=== PATIENT | female | born 1950 | race Caucasian/White ===

== ENCOUNTER → 2018-03-14 | Outpatient (CLI) | payer OTHER, BC ==
--- NOTE | 2018-03-14 13:37 | MAMMOGRAPHY REPORT ---
BILATERAL DIGITAL SCREENING MAMMOGRAM TOMOSYNTHESIS WITH CAD: 03/14/2018 CLINICAL HISTORY: Routine screening. Patient has no complaints. TECHNIQUE: The study was acquired using full field digital technology and interpreted from soft copy. Breast tomosynthesis in addition to standard 2D mammography was performed. Current study was also ev aluated with a Computer Aided Detection (CAD) system. COMPARISON: Comparison is made to exams dated: 05/05/2015 mammogram, 04/12/2011 mammogram, 03/25/2010 ma mmogram - [facility], 06/24/2008, and 08/07/2004 mammogram - [facility]ter. BREAST COMPOSITION: There are scattered areas of fibroglandular density in both breasts. FINDINGS: There are mild vascular calcifications in the breasts. A benign circumscribed, gently lobu lated mass in the 9:00 right breast is decreased in size comparing to the 2011 mammograms, confirming benignity. There are a few scattered benign-appearing calcifications. No suspicious mass, oracle ebs architect ural distortion or cluster of microcalcifications is seen. IMPRESSION: ACR BI-RADS CATEGORY 1: NEGATIVE There is no mammographic evidence of malignancy. A 1 year screening mammogram is recommended.( 019) The patient will receive written notification of the results. Some breast cancers are not detected with mammography. A negative mammographic report should not maddie y biopsy if a clinically suggestive mass is present. Heaven Randall M.D. ay/:03/14/2018 12:47:57 Logistics Loss Prevention Manager: RT Andrey(Melvi)(M), [facility] letter sent: Normal 1/2 BI-RADS Code: ACR BI-RADS Category 1: Negative
== END | disposition home or self-care (01) ==
LOC: C.MAMM 11:50
PROVIDERS: ATTEND Family Medicine
DX: Z12.31 Encounter for screening mammogram for malignant neoplasm of breast (principal)

== ENCOUNTER 2024-06-04 10:13 | Observation (INO) ==
--- NOTE | 2024-05-01 11:14 | PAT Medication Instructions ---
Medication Instructions Date of Service May 01, 2024 Home Medications Medication Instructions Recorded hydrocodone 5 mg-acetaminophen 325 1 - 2 tab PO Q6H PRN pain #20 tabs 12/15/23 mg tablet biotin 5 mg tablet 5 mg PO QAM calcium carbonate 600 mg-vitamin D3 5 mcg (200 unit) capsule (Calcium 600 + D(3)) 1 cap PO PM cetirizine 10 mg tablet 10 mg PO QAM cyanocobalamin (vitamin B-12) 100 mcg tablet 500 mcg PO QDL flaxseed oil 1,000 mg capsule 1,400 mg PO PM fluticasone propionate 50 mcg/actuation nasal spray,suspension (Flonase Allergy Relief) 2 spray intranasal HS hydrochlorothiazide 25 mg tablet 25 mg PO QPM mometasone 0.1 % topical cream (Elocon) 1 applic topical DAILY PRN sodium chloride 0.65 % nasal spray aerosol ([place] Nasal) 2 spray intranasal DAILY PRN hydrocodone 5 mg-acetaminophen 325 mg tablet 1 - 2 tab PO Q6H PRN ascorbic acid (vitamin C) 500 mg tablet (Vitamin C) 500 mg PO PM chromium picolinate 1,000 mcg tablet 1,000 mcg PO QDL ibuprofen 200 mg tablet 200 mg PO Q6H PRN multivitamin 1 tab PO QDL Continue as directed sodium chloride 0.65 % nasal spray aerosol ([place] Nasal) 2 spray intranasal DAILY PRN(if needed) ASK your surgeon for instructions ibuprofen 200 mg tablet 200 mg PO Q6H PRN STOP taking 2 weeks before surgery (or as soon as possible if surgery is within 2 weeks) biotin 5 mg tablet 5 mg PO QAM chromium picolinate 1,000 mcg tablet 1,000 mcg PO QDL flaxseed oil 1,000 mg capsule 1,400 mg PO PM STOP taking 24 hours before surgery mometasone 0.1 % topical cream (Elocon) 1 applic topical DAILY PRN DO NOT take the morning of surgery cetirizine 10 mg tablet 10 mg PO QAM cyanocobalamin (vitamin B-12) 100 mcg tablet 500 mcg PO QDL multivitamin 1 tab PO QDL Take morning of surgery With a small sip of water, OTHERWISE NOTHING TO EAT OR DRINK AFTER MIDNIGHT: hydrocodone 5 mg-acetaminophen 325 mg tablet 1 - 2 tab PO Q6H PRN(if needed) Take evening before surgery calcium carbonate 600 mg-vitamin D3 5 mcg (200 unit) capsule (Calcium 600 + D(3)) 1 cap PO PM fluticasone propionate 50 mcg/actuation nasal spray,suspension (Flonase Allergy Relief) 2 spray intranasal HS hydrochlorothiazide 25 mg tablet 25 mg PO QPM hydrocodone 5 mg-acetaminophen 325 mg tablet 1 - 2 tab PO Q6H PRN(if needed) ascorbic acid (vitamin C) 500 mg tablet (Vitamin C) 500 mg PO PM Other Notes If you have any questions please call us at [phone] or [phone] or [phone] or [phone]
--- NOTE | 2024-05-09 12:15 | Anesthesiology Consultation ---
Date of Service May 09, 2024 Assessment & Plan (1) Encounter for pre-operative examination: Chart Review Chart Review: Acceptable Risk for Surgery and Patient seen in Pre Admission Testing - Patient is not an ideal OPJ candidate (currently 23 hour obs) Per PAT appt on 05/09/24, no recent illness/disease exposures, illness related symptoms, or recent illness/disease positive tests. Will leave to surgeon's discretion if preop Covid testing needed Teaching & Discussion Pre-Anesthesia Teaching/Discussion Notes: Instructed NPO after midnight before surgery,except medications with 15 cc of water. Medication instructions provided according to the [facility] guidelines. History Surgery Operation Date: 06/04/24 08:50 Proposed Procedures p Right Total Knee Arthroplasty - Oleg Roger MD Height/Weight Height: 5 ft 4 in Weight: 78.4 kg Allergies Allergy/AdvReac Type Severity Reaction Status Date / Time nickel Allergy Intermediate Rash Verified 05/01/24 10:20 Penicillins Allergy Intermediate Rash Verified 05/01/24 10:20 Sulfa (Sulfonamide Allergy Intermediate Rash Verified 05/01/24 10:20 Antibiotics) Additional Notes: Nickel allergy noted in OR booking comments Medications Home Medications Medication Instructions Recorded Confirmed Last Taken biotin 5 mg tablet 5 mg PO QAM 04/19/19 05/01/24 05/14/19 calcium 600 mg (as 1 cap PO PM 04/19/19 05/01/24 05/14/19 carbonate)-vitamin D3 5 mcg (200 unit) capsule (Calcium 600 + D(3)) cetirizine 10 mg tablet 10 mg PO QAM 04/19/19 05/01/24 05/14/19 cyanocobalamin (vitamin B-12) 100 500 mcg PO QDL 04/19/19 05/01/24 05/14/19 mcg tablet flaxseed oil 1,000 mg capsule 1,400 mg PO PM 04/19/19 05/01/24 05/14/19 fluticasone propionate 50 2 spray intranasal HS 04/19/19 05/01/24 05/14/19 mcg/actuation nasal spray,suspension (Flonase Allergy Relief) hydrochlorothiazide 25 mg tablet 25 mg PO QPM 04/19/19 05/01/24 05/13/19 mometasone 0.1 % topical cream 1 applic topical DAILY PRN finger 0905/01/24 05/14/19 (Elocon) blister sodium chloride 0.65 % nasal spray 2 spray intranasal DAILY PRN Nasal 04/19/19 05/01/24 05/14/19 aerosol ([place] Nasal) Congestion hydrocodone 5 mg-acetaminophen 325 1 - 2 tab PO Q6H PRN pain #20 tabs 07/21/23 05/01/24 Unknown mg tablet ascorbic acid (vitamin C) 500 mg 500 mg PO PM 05/01/24 05/01/24 Unknown tablet (Vitamin C) chromium picolinate 1,000 mcg 1,000 mcg PO QDL 05/01/24 05/01/24 Unknown tablet ibuprofen 200 mg tablet 200 mg PO Q6H PRN Pain 05/01/24 05/01/24 Unknown multivitamin 1 tab PO QDL 05/01/24 05/01/24 Unknown Past Medical History Medical History (Updated 05/09/24 @ 12:25 by Kenzie Cisneros PA-C) Acid reflux mild, rare- relieved with Tums Acquired solitary kidney Donated to daughter in DJD (degenerative joint disease) History of COVID-23 October 2022 - no current issues Hypertension Osteoarthritis Exercise / Class Metabolic Activity II 4-5 Yardwork/Stairs/Walk up hill (one flight of stairs - no chest pain or SOB ) Past Family History Family History Mother Family history of diabetes mellitus Family hx colonic polyps Father Family hx colonic polyps Other No family history of adverse response to anesthesia Past Surgical History Surgical History History of bilateral tubal ligation History of colonoscopy History of left nephrectomy no issues, donated to daughter History of neck surgery at 8yrs old muscle from neck attached to collar bone had to be cut--normal ROM History of root canal procedure History of wisdom tooth extraction Past Anesthesia History No Hx of Anesthesia Complications (with exception to remote history of PONV with left nephrectomy ) and No Family Hx of Anesthesia Complications History of PONV History of PONV (remote history ) and Hx of Motion Sickness Social History Smoking Status: Never smoker Do You Dip or Chew Tobacco: No Hx Alcohol Use: Yes Alcohol type: wine and hard liquor alcohol intake frequency: holidays/special occasions only Hx Substance Use: No substance use type: does not use Review of Systems - Hx of snoring - no witnessed apnea - no hx of sleep study Patient denies chest pain, shortness of breath, dyspnea on exertion, cough, wheezing, palpitations. No hx of seizures, stroke, MD. No hx of blood clots or blood transfusions Physical Exam Vital Signs VITALS BP 127/81 P 69 TEMP 97.7 SP02 97% RESP 16 Constitutional no acute distress ENMT Mouth: no TMJ clicking Thyromental Distance: > or= 3.5 Finger Breadths (3.5) Mallampati Class: I Crowns to molars Neck + limited neck extension (minimal ) Respiratory normal respiratory effort; no respiratory distress Auscultation: lungs clear to auscultation bilaterally; no wheezes Cardiovascular Rate/Rhythm: regular rate and regular rhythm Heart Sounds: no murmur Vessels: no carotid bruit Musculoskeletal Spine: + pain with cervical ROM (mild) Extremities: extremities normal to inspection Psychiatric Orientation: alert Lab Results Anesthesia Preop Results Results Anesthesia Widget: WBC 5.53 K/ul (4.8-10.8) 05/09/24 Hgb 14.7 g/dl (12.0-16.0) 05/09/24 Hct 42.4 % (37.0-47.0) 05/09/24 Plt 190 K/uL (130-400) 05/09/24 Na 139 mmol/L (136-145) 05/09/24 K 3.8 mmol/L (3.5-5.1) 05/09/24 Cl 99 mmol/L (98-107) 05/09/24 CO2 33 mmol/L (21-32) H 05/09/24 BUN 19 mg/dl (6-23) 05/09/24 Creat 0.87 mg/dl (0.6-1.2) 05/09/24 Glucose Level 86 mg/dl (70-99(Fasting)) 05/09/24 PT 11.3 Seconds (9.0-12.0) 05/09/24 PTT 27 Seconds (21-31) 05/09/24 INR 1.0 (0.9-1.1) 05/09/24 Blood Type A Positive 05/09/24 Antibody Screen NEGATIVE 05/09/24 Testing Electrocardiogram Date: 05/09/24 Findings: + NSR @ (69bpm) Nonspecific ST abnormality Chest X-Ray Date: 05/09/24 Findings: + NAD FINDINGS: Lung volumes are normal. Lungs are clear. There is no pneumothorax or pleural effusion. Cardiac size is normal. Mediastinal contours are normal. There is no evidence for pulmonary edema.
--- NOTE | 2024-05-29 11:36 | History & Physical Report ---
Date of Service May 29, 2024 Assessment & Plan (1) Degenerative arthritis of knee, bilateral: 74-year-old female with advanced bilateral knee DJD. She has failed conservative treatment. She like to proceed with knee replacement. The right knee is bothering more than the left. Plan: Orgran to proceed with right total knee replacement. The risks Mente this procedure explained in depth and the patient understands. Informed consent was obtained. She only has a single kidney selected be careful with NSAID use. Will use aspirin for DVT prophylaxis. She does have a nickel allergy so we use a [employer] zirconium knee system. She is planned to be discharged to home with some home health and her 's assistance. (2) History of colon polyps: (3) Hypertension: (4) Acid reflux: (5) Acquired solitary kidney: History of Present Illness Chief Complaint: . Bilateral knee pain discomfort right side greater than the left. Primary Care Provider: Allan Gray MD . Patient is a 74-year-old female who presents for treatment of her knees. She is got a fairly long extensive history of bilateral knee pain discomfort is gradually gotten worse over time. She been through extensive conservative treatment which has become less successful over time. The right knee bothers him more than the left. Is global pain. The more she is on it the more it hurts. She would like to proceed with knee replacement on the right side. Of note, the patient does apparently have a nickel allergy. She only has a single kidney as she donated one of her kidneys to her daughter. Allergies Allergy/AdvReac Type Severity Reaction Status Date / Time nickel Allergy Intermediate Rash Verified 05/01/24 10:20 Penicillins Allergy Intermediate Rash Verified 05/01/24 10:20 Sulfa (Sulfonamide Allergy Intermediate Rash Verified 05/01/24 10:20 Antibiotics) Home Medications Medication Instructions Recorded Confirmed Type biotin 5 mg tablet 5 mg PO QAM 04/19/19 05/01/24 History calcium 600 mg (as 1 cap PO PM 04/19/19 05/01/24 History carbonate)-vitamin D3 5 mcg (200 unit) capsule (Calcium 600 + D(3)) cetirizine 10 mg tablet 10 mg PO QAM 04/19/19 05/01/24 History cyanocobalamin (vitamin B-12) 100 500 mcg PO QDL 04/19/19 05/01/24 History mcg tablet flaxseed oil 1,000 mg capsule 1,400 mg PO PM 04/19/19 05/01/24 History fluticasone propionate 50 2 spray intranasal HS 04/19/19 05/01/24 History mcg/actuation nasal spray,suspension (Flonase Allergy Relief) hydrochlorothiazide 25 mg tablet 25 mg PO QPM 04/19/19 05/01/24 History mometasone 0.1 % topical cream 1 applic topical DAILY PRN finger 04/19/19 05/01/24 History (Elocon) blister sodium chloride 0.65 % nasal spray 2 spray intranasal DAILY PRN Nasal 04/19/19 05/01/24 History aerosol ([place] Nasal) Congestion ascorbic acid (vitamin C) 500 mg 500 mg PO PM 05/01/24 05/01/24 History tablet (Vitamin C) chromium picolinate 1,000 mcg 1,000 mcg PO QDL 05/01/24 05/01/24 History tablet ibuprofen 200 mg tablet 200 mg PO Q6H PRN Pain 05/01/24 05/01/24 History multivitamin 1 tab PO QDL 05/01/24 05/01/24 History Past Med/Surg History Problem List Degenerative arthritis of knee, bilateral Bilateral knee pain Encounter for pre-operative examination History of colon polyps Medical History Acquired solitary kidney Donated to daughter in Acid reflux mild, rare- relieved with Tums History of COVID-23 October 2022 - no current issues DJD (degenerative joint disease) Osteoarthritis Hypertension Surgical History History of neck surgery at 8yrs old muscle from neck attached to collar bone had to be cut--normal ROM History of bilateral tubal ligation History of left nephrectomy no issues, donated to daughter History of colonoscopy History of root canal procedure History of wisdom tooth extraction Family History Mother Family history of diabetes mellitus Family hx colonic polyps Father Family hx colonic polyps Other No family history of adverse response to anesthesia Social History Smoking Status: Never smoker Second Hand Exposure: Yes (during working years several yrs ago); Do You Dip or Chew Tobacco: No; Hx Alcohol Use: Yes Alcohol type: wine and hard liquor Hx Substance Use: No Preferred Language: Syriac Communication Ability: Effective Sales Analyst Required: No Beliefs That Will Affect Care: None Current Living Situation: Spouse Current Living Situation Comment: Lives with and son Feels Safe at Home: Yes Assistive Devices: Glasses Review of Systems All systems reviewed & are unremarkable except as noted in HPI & below. Physical Exam . Physical examination was a pleasant middle-age female but looks in good health. Examination of the right knee reveal patient ambulates independently. Good varus alignment to her knee. She is tender over the medial joint line. She is got some bony approach for medially. Range of motion about 5 degrees short of full extension on 20 degrees of flexion. There is no instability. No pain with hip motion. Examination left knee reveals a similar varus deformity. Moderate tenderness medially. Small knee joint effusion. Range of motion 5-1 25. No instability. Constitutional WD/WN, vitals as above Neck trachea midline, no thyromegaly Respiratory normal respiratory effort, lungs clear to auscultation Cardiovascular RRR, no murmur, no edema Gastrointestinal (Abdomen) normal bowel sounds, soft, nontender, no hepatosplenomegaly Results & Data Results & Data Laboratory Results . Diagnostic Findings . X-rays of both knees were reviewed and show advanced knee arthritis. She she got complete loss of the medial joint space in both knees. She has subchondral sclerosis and osteophytes primarily medially. PG Care Time/CCT Total # of Minutes Spent Total Time Spent with Patient: Total time spent is greater than 50% in coordination of care (as documented) at patient's floor/unit and/or counseling patient: Coding Level of Care Code None Diagnoses Degenerative arthritis of knee, bilateral M17.0 History of colon polyps Z86.010 Hypertension I10 Acid reflux K21.9 Acquired solitary kidney Z90.5
[~2024-06-04 10:13] MED LIST: ROPIVACAINE 0.5% 5 MG/ML 30 ML VIAL ONE
--- NOTE | 2024-06-04 10:57 | History & Physical Bridge Note ---
Date of Service June 04, 2024 History & Physical Bridge Note I have examined the patient, reviewed the History & Physical and in the interval since the performance of the History & Physical I have noted the following changes of clinical significance: no changes noted
[2024-06-04] MEDS: ACETAMINOPHEN 500 MG TAB PO SCH ×2 (11:10→20:23)
[2024-06-04] MEDS: LR 60ML/HR IV SCH (11:10)
[2024-06-04] MEDS: LR 500ML BOLUS, THEN 15ML/HR IV SCH (11:10)
[2024-06-04] MEDS: FAMOTIDINE 20 MG TAB PO SCH (11:10)
[2024-06-04] MEDS: METOCLOPRAMIDE HCL 10 MG TABLET PO SCH (11:10)
[2024-06-04] MEDS ORDERED: MIDAZOLAM HCL 1 MG/ML 2ML VIAL ONE (11:35)
[2024-06-04] MEDS ORDERED: fentaNYL citrate PF 100 MCG/2 ML VIAL ONE (11:35)
[2024-06-04] MEDS ORDERED: ATROPINE SULFATE 0.1 MG/ML 10ML SYR IV PRN (11:41)
[2024-06-04] MEDS ORDERED: ONDANSETRON INJ 2 MG/ML 2 ML VIAL IV PRN (11:41)
[2024-06-04] MEDS ORDERED: fentaNYL citrate PF 100 MCG/2 ML VIAL IV PRN (11:41)
[2024-06-04] MEDS ORDERED: ePHEDrine sulfate 50 MG/ML AMP IV PRN (11:41)
[2024-06-04] MEDS ORDERED: BUPIVACAINE 0.5 % 5 MG/1 ML PF 10ML VIAL ONE (12:03)
[2024-06-04] MEDS ORDERED: BUPIVACAINE 0.25% PF 30 ML VIAL ONE (12:03)
[2024-06-04] MEDS: ceFAZolin 2000MG 2,000 MG/15 ML SYR IV SCH (12:41)
[2024-06-04] MEDS ORDERED: KETAMINE HCL 10MG/ML SYR ONE (12:45)
[2024-06-04] MEDS ORDERED: ONDANSETRON INJ 2 MG/ML 2 ML VIAL ONE (12:50)
[2024-06-04] MEDS ORDERED: PHENYLEPHRINE 100MCG/ML 5ML SYR ONE (12:50)
[2024-06-04] MEDS ORDERED: PROPOFOL IV EMULSION 10 MG/ML 20 ML VIAL IV ONE ×2 (12:50→13:48)
[2024-06-04] MEDS: ROPIV 0.5% 246mg, Ketorolac 30mg, EPINEPHrine 0.5mg in NSS INFIL SCH (13:33)
[2024-06-04] MEDS: ORTHO JOINT ANESTHETIC ONE (13:33)
[2024-06-04] MEDS: TRANEXAMIC ACID 1,000 MG **IV Intra-op IV SCH (13:49)
--- OUTSIDE RECORDS SUMMARY | 2024-06-04 13:54 | External Medical Summary | Summary of Care ---
Author Name Unknown Organization [facility] Address [address] [place] [address] Phone [phone] Care Team Providers Care Cartridge Filler Name Role Phone Allan Gray MD Primary Care Provider +1- [phone] Encounter Details Date Type Department Care Team (Late st Contact Info) Description 05/13/2024 Orders Only [address] [address] Allan Gray MD [address] [place] [address] Allergies Active Allergy Reactions Criticality Noted Date Comments Nickel 05/24/2022 Rash Penicillins 03/22/1999 PENICILLIN, RASH Sulfa Antibiotics Rash Low 10/04/2010 documented as of this encounter (statuses as of 05/13/2024) Medications Medication Sig Dispensed Refills Start Date End Date Status VITAMIN E 400 UNIT PO CAPS Take by mouth. 0 0 11/25/2009 Active BIOTIN 5 MG PO CAPS once daily 0 0 11/25/2009 Active GLUCOSAMINE SULFATE 750 MG PO TABS Take by mouth 3 Tablets . 1 Tab 1 02/24/2010 Active OCEAN NASAL SPRAY 0.65 % NA SOLNIndications:Aller gic rhinitis Two sprays in each nostril as needed for nasal dryness or congestion 1 Bottle 5 01/10/2012 Active FLAX SEED OIL 1000 MG PO CAPS 1 tab a day 1 Cap 0 12/23/2013 Active Cetirizine HCl (ZYRTEC ALLERGY) 10 MG CapsuleIndications:in am Take 1 Capsule by mouth in the morning. 10/08/2015 Active Calcium Carbonate-Vitamin D (CALCIUM + D) 600-200 MG-UNIT per tablet Take 1 Tablet by mouth in the morning. 1 Tab 02/14/2018 Active Cyanocobalamin (B-12) 100 MCG TABS Take by mouth. Active traMADol (ULTRAM) 50 MG TabletIndications:Gen eralized osteoarthritis Take 1 Tab by mouth every 6 hours as needed for Pain. 40 Tab 12/18/2019 Active Mometasone Furoate 0.1 % External OintmentIndications:D ermatitis Apply topically to affected area every night at bedtime. Apply to blisters on her fingers as needed. 15 g 1 04/14/2021 Active Multivitamin Adult Oral Tablet Take by mouth . Active Turmeric 500 MG Oral Capsule Take 1 Capsule by mouth in the morning. Active Fluticasone Propionate 50 MCG/ACT Nasal Suspension Administer 2 Sprays into each nostril in the morning. 3 g 1 09/05/2022 Active hydroCHLOROthiazide 25 MG Oral Tablet (Hydrodiuril)Indicati ons:HTN, goal below 140/90,Venous insufficiency Take 1 Tablet by mouth in the morning. 90 Tablet 1 03/05/2024 Active documented as of this encounter (statuses as of 05/13/2024) Active Problems Problem Noted Date Diagnosed Date Chronic kidney disease, stage 3a 04/18/2022 Overview: Per CKD protocol Benign hypertension with stage 3a chronic kidney disease 03/14/2022 Overview: Per CKD protocol Solitary kidney, acquired 2022 Restless legs syndrome 10/26/2016 HTN, goal below 140/90 01/10/2012 ADVANCE DIRECTIVE INFORMATION 05/16/2007 Overview: No, Advance Directive brochure offered , patient declined. Venous insufficiency 01/30/2007 documented as of this encounter (statuses as of 05/13/2024) Resolved Problems Problem Noted Date Diagnosed Date Resolved Date Benign hypertension with CKD (chronic kidney disease) stage III 02/14/2018 03/17/2022 Overview: Per CKD protocol Dry eye 10/26/2016 02/14/2018 Kidney disease, chronic, sta ge III (GFR 30-59 ml/min) 10/12/2015 03/24/2018 Overview: Per CKD protocol #1 Hormone replacement therapy, postmenopausal 03/27/2013 03/17/2015 Cough 01/10/2012 03/09/2015 HTN, goal below 140/90 06/29/200901/09 Overview: Modified per HTN protocol #16. Family history of cardiovascular disease 04/28/2008 12/24/2018 Family history of diabetes mellitus 04/28/2008 12/24/2018 Family history of other endo crine and metabolic diseases(V18.19) 04/28/2008 02/14/2018 Family history of ischemic heart disease 04/28/2008 12/24/2018 Other allergic rhinitis 07/04/200712/2011 Overview: ICD-10 update of inactive term Edema 01/30/2007 07/04/2007 ACUTE SINUSITIS NOS 01/05/2001 07/04/20 07 ACUTE URI NOS 01/05/2001 07/04/2007 HYPERTENSION NOS 06/29/2009 Overview: Modified per HTN protocol #16. documented as of this encounter (statuses as of 05/13/2024) Immunizations Name Administration Dates Next Due Covid-19 Ad26, Single Dose (Jaja/J&J) 021 Pneumococcal Conjugate Vaccine, 20-valent (Prevn ar20) 02/28/2024 Pneumococcal Polysaccharide PPV23 (Pneumovax) TDAP, Age 7 and older, IM (Adacel) 01/21/2009 01/21/2019 Varicella Zoster Vaccine (Adult) 10/31/2012 documented as of this encounter Social History Tobacco Use Types Packs/Day Years Used Date Smoking Tobacco: Never Smokeless Tobacco: Never Alcohol Use Standard Drinks/Week Comments Yes 0 (1 standard drink = 0.6 oz pur e alcohol) social PHQ-2 Answer Date Recorded PHQ Adult Total Score 0 01/19/2022 Hunger Vital Sign Answer Date Recorded Within the past 12 months, y ou worried that your food would run out before you got the money to buy more. Never true 02/23/20 23 Within the past 12 months, t he food you bought just didn't last and you didn't have money to get more. Never true 02/22/2023 Sex and Gender Information Value Date Recorded Sex Assigned at Female 12/24/2018 2:50 PM EDT Gender Identity Female 12/24/2018 2:50 PM EDT Sexual Orientation Straight 12/24/2018 2: 50 PM EDT Job Start Date Occupation Industry Not on file Not on file Not on file documented as of this encounter Plan of Treatment Upcoming Encounters Date Type Department Care Team (Late st Contact Info) Description 06/27/2024 11:30 AM EST Office Visit Orthopaedics [facility] [address] [place] [address] Ted Reyna, [address] [place] [address] 02/27/2025 1:40 PM EDT Office Visit [facility] [address] [place] [address] Allan Gray MD [address] [place] [address] Scheduled Procedures Name Priority Associated Diagnoses Date/Ti me COLONOSCOPY FLEXIBLE PROXIMAL DIAGNOSTIC Recall History of colon polyps Health Maintenance Due Date Last Done Comments Cologuard 01/31/1997 Sigmoidoscopy 01/31/1997 Zoster Vaccines (2 of 3) 12/26/2012 10/31/2012 Fecal Occult Blood Test 01/02/2015 01/02/2014, 05/03 DTap/Tdap Vaccines (2 - Td or Tdap) 01/21/2019 01/21/2009, 02/04/1994 Albumin/Creatinine Ratio 02/14/2019 02/14/2018 CKD HGB USE SMARTSET 34851 02/14/201905/09, 02/14/2018, 02/25/2010, Additional history exists CKD PHOS USE SMARTSET 60401 02/14/2019 02/14/2018 Mammogram 09/20/2020 09/20/2019, 08/0 03/2018, 05/05/2015, Additional history exists Adult Wellness Visit 01/19/2023 01/19/2022 Depression Screening 01/19/2023 01/19/2022 GFR 11/10/2023 05/09/2024, 12/2022, 01/19/2022, Additional history exists COVID-19 Vaccine ( season) 2024 11/13/2020 Influenza Vaccine (FLU shot) (#1) 2024 Colonoscopy 05/30/2025 05/30/2022, 05/08, 05/15/2019, Additional history exists Colorectal Cancer Screening 05/30/2025 Lipid Panel 05/11/2028 05/11/2023, 02/04, 10/17/2016, Additional history exists DXA Scan 10/10/2030 10/11/2023, 02/19/2018 RETIRED - COLONOSCOPY-ANNUAL AGES 18-100 Discontinued 05/30/2022, 05/30/2022, 05/15/2019, Additional history exists Pneumococcal Vaccine: 65+ Years Completed 02/28/2024, 06/26/2020 HPV (Gardasil) Vaccine Aged Out No lo nger eligible based on patient's age to complete this topic Hepatitis B Vaccine Aged Out No longe r eligible based on patient's age to complete this topic MENINGOCOCCAL (MENACTRA/MENVEO) Aged Out No longer eligible based on patient's age to complete this topic documented as of this encounter Medical Devices Not on filedocumented as of this encounter Procedures Procedure Name Priority Date/Time Associated Diagnosis Comments CHEMISTRY-OUTSIDE Routine 05/09/2024 documented in this encounter Results * CHEMISTRY-OUTSIDE (05/09/2024) Not all results display below - see scan for full detail OUTSIDE LAB (SEE SCANNED REPORT) Comment:SCAN INCLUDES: PT IN T PTT, BMP, CBCD CREATININE 0.87 0.6 - 1.2 MG/DL OUTSIDE LAB (SEE SCANNED REPORT) EGFR 70.74 OUTSIDE LA B (SEE SCANNED REPORT) POTASSIUM 3.8 3.5 - 5.1 MMOL/L OUTSIDE LAB (SEE SCANNED REPORT) GLUCOSE 86 70 - 99 MG/DL OUTSIDE LAB (SEE SCANNED REPORT) HOURS FASTING OUTSID E LAB (SEE SCANNED REPORT) TRIGLYCERIDES-OUT SIDE LAB OUTSIDE LAB (SEE SCANNED REPORT) CHOLESTEROL-OUTSI DE LAB OUTSIDE LAB (SEE SCANNED REPORT) HDL-OUTSIDE LAB OUTS [facility] (SEE SCANNED REPORT) CHOL/HDL RATIO-OUTSIDE LAB OUTSIDE LA B (SEE SCANNED REPORT) LDL (CALCULATED)-OUTS [facility] LAB OUTSIDE LAB (SEE SCANNED REPORT) LDL (DIRECT MEASURE)-OUTSIDE LAB OUTSIDE LAB (SEE SCANNED REPORT) HEMOGLOBIN, U8C-VLLUGVS LAB OUTSIDE LAB (SEE SCANNED REPORT) PHOSPHORUS-OUTSID E LAB OUTSIDE LAB (SEE SCANNED REPORT) PTH-OUTSIDE LAB OUTS [facility] (SEE SCANNED REPORT) MICROALBUMIN RATIO-OUTSIDE LAB OUTSIDE LA B (SEE SCANNED REPORT) PROTEIN, UA-OUTSIDE LAB OUTSIDE LAB (SEE SCANNED REPORT) HGB 14.7 12 - 16 G/DL OUTSIDE LAB (SEE SCANNED REPORT) 05/09/2024 Oleg Roger MD LABORATORY OUTSIDE LAB (SEE SCANNED REPORT) documented in this encounter Care Teams Cartridge Filler Relationship Specialty Start Date End Date Allan Gray MD [address] [place] [address] PCP - General 07/01/03 documented as of this encounter
--- OUTSIDE RECORDS SUMMARY | 2024-06-04 13:54 | External Medical Summary | Summary of Care ---
Author Name Unknown Organization [facility] Address [address] [place] [address] Phone [phone] Care Team Providers Care Grain Packer Name Role Phone Allan Gray MD Primary Care Provider +1- [phone] Encounter Details Date Type Department Care Team (Late st Contact Info) Description 05/09/2024 Result Scan Unspecified Department <No scans attached> Allergies Active Allergy Reactions Criticality Noted Date [...] heart disease 04/28/2008 12/24/2018 Other allergic rhinitis 07/04/2007 06/12/2011 Overview: ICD-10 update of inactive term Edema [...] 06/27/2024 11:30 AM EST Office Visit Orthopaedics [facility] [address] [place] [address] Ted Reyna, [address] [place] [address] 02/27/2025 1:40 PM EDT Office Visit [facility] [address] [place] [id number] Allan Gray MD [address], [place] [phone] Scheduled Procedures Name Priority Associated Diagnoses Date/Ti me COLONOSCOPY FLEXIBLE PROXIMAL DIAGNOSTIC Recall History of colon polyps Health Maintenance Due Date Last Done Comments Cologuard 01/31/1997 Sigmoidoscopy 01/31/1997 Zoster Vaccines (2 of 3) 12/26/2012 10/31/2012 Fecal Occult Blood Test 01/02/2015 01/02/2014, 05/03 DTap/Tdap Vaccines (2 - Td or Tdap) 01/21/2019 01/21/2009, 02/04/1994 Albumin/Creatinine Ratio 02/14/2019 02/14/2018 CKD HGB USE SMARTSET 39702 02/14/201905/09, 02/14/2018, 02/25/2010, Additional history exists CKD PHOS USE SMARTSET 23198 02/14/2019 02/14/2018 Mammogram 09/20/2020 09/20/2019, 03/2018, 05/05/2015, Additional history exists Adult Wellness Visit 01/19/2023 01/19/2022 Depression Screening 01/19/2023 01/19/2022 GFR 11/10/2023 05/09/2024, 12/2022, 01/19/2022, Additional history exists COVID-19 Vaccine (2 - season) 2024 11/13/2020 Influenza Vaccine (FLU shot) [...] Procedure Name Priority Date/Time Associated Diagnosis Comments EKG SCANNED RESULT 05/09/2024 documented in this encounter Results * EKG SCANNED RESULT (05/09/2024) 05/09/2024 No Physician Data Unknown EKG documented in this encounter Care Teams Grain Packer Relationship Specialty Start Date End Date Allan Gray MD [address], [place] [id number] PCP - General 07/01/03 documented as of this encounter
--- OUTSIDE RECORDS SUMMARY | 2024-06-04 13:54 | External Medical Summary | Summary of Care ---
Author Name Unknown Organization [facility] Address [address] [place] [address] Phone [phone] Care Team Providers Care Range Examiner Name Role Phone Allan Gray MD Primary Care Provider +1- [phone] Encounter Details Date Type Department Care Team (Late st Contact Info) Description 05/13/2024 Orders Only [address] [address] Allan Gray MD [address] [place] [address] Allergies Active Allergy Reactions Criticality [...] 06/27/2024 11:30 AM EST Office Visit Orthopaed[facility] [address] [place] [address] Ted Reyna, [address] [place] [address] 02/27/2025 1:40 PM EDT Office Visit [facility] [address] [place] [address] Allan Gray MD [address] [place] [address] Scheduled Procedures Name Priority Associated Diagnoses Date/Ti me COLONOSCOPY FLEXIBLE PROXIMAL DIAGNOSTIC Recall History of colon polyps Health Maintenance Due Date Last Done Comments Cologuard 01/31/1997 Sigmoidoscopy 01/31/1997 Zoster Vaccines (2 of 3) 12/26/2012 10/31/2012 Fecal Occult Blood Test 01/02/2015 01/02/2014, 05/03 DTap/Tdap Vaccines (2 - Td or Tdap) 01/21/2019 01/21/2009, 02/04/1994 Albumin/Creatinine Ratio 02/14/2019 02/14/2018 CKD HGB USE SMARTSET 12933 02/14/201905/09, 02/14/2018, 02/25/2010, Additional history exists CKD PHOS USE SMARTSET 46660 02/14/2019 02/14/2018 Mammogram 09/20/2020 09/20/2019, 08/0 03/2018, [...] Procedure Name Priority Date/Time Associated Diagnosis Comments XR CHEST 2 VIEWS Routine 05/09/2024 documented in this encounter Results * XR CHEST 2 VIEWS (05/09/2024) Anatomical Region Laterality Modality Chest Other 05/09/2024 Oleg Roger MD RADIOLOGY (RAD G ENERAL) documented in this encounter Care Teams Range Examiner Relationship Specialty Start Date End Date Allan Gray MD [address] [place] [address] PCP - General 07/01/03 documented as of this encounter
[2024-06-04] MEDS ORDERED: ePHEDrine sulfate 50 MG/5 ML SYR ONE (14:11)
--- NOTE | 2024-06-04 14:46 | Operative Report ---
PG Post Operative Report Pre & Post Diagnosis Operation Date: 06/04/24 12:30 Pre-Op Diagnosis: Right Knee Osteoarthritis Post-Op Diagnosis: Right Knee Osteoarthritis I identified the patient and participated in the time-out.: Yes Procedure Operation Date: 06/04/24 12:30 Actual Procedures p Right Total Knee Arthroplasty(Right) - Oleg Roger MD Surgeon Oleg Roger MD Mechanical Commissioning Engineer Pedro Luis Meza PA-C Estimated Blood Loss 50 Findings Consistent with Post-Op Diagnosis Specimens Right knee sent for pathology. Anesthesia Type Spinal MAC Complications none Disposition Accompanied Patient To Recovery: No Indications Patient is a 74-year-old female is had a long gradual history of progressive knee pain and discomfort is gotten worse over time. She failed conservative measures. She elected proceed with right total knee arthroplasty. The patient has an apparent nickel allergy so we will use a Woodson [employer] Nephew zirconium total knee arthroplasty system. Description of Procedure Operative implants consist of: 1. Woodson [employer] Nephew journey 2 size 4 right posterior stabilized femoral component. 2. Biomet size 2 journey 2 tibial tray. 3. 12 mm posterior stabilized polyethylene insert. 4. 29 x 9 all poly patella. The patient was taken the op room, identified, placed on the operating table in the supine position. All contact areas were appropriately padded. IV antibiotics fibra anesthesia team. A spinal anesthetic and adductor canal block had been Weida in the holding area. Mathew catheter was placed in sterile fashion. A right thigh tent was then placed for the right lower extremity was then prepped and draped in usual sterile fashion. The right leg was elevated and exsanguinated with use of an Esmarch and a turn was placed at 300 mmHg. An anterior approach to the right knee was then performed to longitudinal incision centered over the patella. Sharp dissection was got through subcutaneous tissue down the extensor mechanism. A medial parapatellar arthrotomy incision was made. Some subperiosteal dissection was get out medially. The fat pad was dissected from Neath patella tendon. The lateral patellofemoral ligament was released. Patella subluxated laterally and the knee was flexed. The osteophytes taken off distal femur. ACL and PCL were then released from distal femur the tibia subluxated anteriorly. The external treatment line jig was then placed on the interface the tibia and adjusted 8 mm medially. The proximal tibial cut was made remove about 2 mm of bone from the medial side. The tibia was then sized to a size 2. We did remove some of the medial and posterior medial osteophytes. Attention was then drawn to the femur. The distal femur 0 with a sharp drill. The intramedullary canal was suction. The intramedullary jun was placed. A right 5 degree valgus cutting guide was placed in the distal femoral cutting block was pinned in place. Distal femoral cut was made to take an additional 2 mm of bone off the distal femur. The femur was then sized to a size 4. The AP cutting block was pinned parallel to the epicondylar axis which was 3 degrees of external rotation. The anterior cut, anterior cord, posterior cuts, posterior chamfer, and anterior chamfer cuts were made. The knee was then flexed. The remnants of the medial and lateral menisci were excised. The osteophytes taken off the posterior aspect the femur. The trial femoral component was placed and adjusted laterally. The milling device for the trochlea component was then used and then the trochlea was placed. The knee was then trialed and the 12 mm insert fit most appropriately. Attention drawn the patella. The patella was cleaned of all soft tissues. Patella thickness measured 21 mm in thickness was cut down to 14. It was sized to a size 29 patella. The lug holes were drilled for the 29 patella. The lateral osteophytes removed. Patella button was placed. Knee was taken through range of motion patella tracked nicely with no thumbs test. Attention then drawn toward placing the permanent components. All trial components were removed. Bone plug was placed in the distal femur limit blood loss. A double batch Palacos G cement was mixed. A Woodson [employer] Nephew journey 2 size 4 right posterior stabilized femoral component was then placed followed by a size 2 tibial tray, 12 mm posterior Byce polyethylene insert, and a 29 x 9 all poly patella. The knee was brought out into full extension till cement hardened. Final cement check was then performed. The pericapsular tissues were injected with a total of 100 cc of Ortho mix. Patient did receive 1 g tranexamic acid. The tourniquet was then let down for final turn time 62 minutes. Hemostasis surgeries electrocautery. The extensor Metros then closed with combination 1 PDS suture and then 1 Vicryl suture in a [id number] fashion. Extensor Meclomen checked found to be intact with subcutaneous tissues then closed with 2-0 Dexon suture in a buried interrupted fashion skin was closed skin ainsley. Leg was then cleaned and dried and sterile dressing with Xeroform, 4 x 4's, sterile cast padding, Mauri bandage were applied. Patient then transferred to the recovery in stable condition. Patient tolerated procedure well and there were no complications. Pedro Luis Meza, my physician phlebotomist medical lab assistant, was present for the entire procedure. His assistance was essential and required for appropriate patient positioning, prepping and draping, surgical exposure, performing the technical details of the operation, placement the implants, closure of the wound, and placement of the sterile bandage. I attest to the content of the Intraoperative Record and any orders documented therein. Any exceptions are noted below.
--- NOTE | 2024-06-04 15:01 | XRay Report ---
XR knee RT 1 or 2V routine CLINICAL HISTORY: Postoperative evaluation. COMPARISON: Right knee radiographs April 15, 2024. FINDINGS: Alignment of the total right knee arthroplasty is anatomic. There is no periprosthetic fra cture or unexpected radiopaque foreign body. There are skin ainsley. IMPRESSION: Expected findings following total right knee arthroplasty. ACT 112: Negative or not required by law. Electronically signed by: Arsalan Yeung M.D. 06/04/2024 2:59 PM
--- NOTE | 2024-06-04 15:14 | Anesthesiology Progress Note ---
Date of Service June 04, 2024 Anesthesia Post Procedure Vital Signs Vital Signs: Temp Pulse Pulse Resp BP Pulse Ox O2 Del Method 06/04/24 15:10 81 17 125/74 97 Room Air 06/04/24 15:00 78 18 122/63 96 Room Air 06/04/24 14:50 77 17 117/62 99 Room Air 06/04/24 14:40 36.1 C L 74 14 106/55 L 98 Room Air 06/04/24 10:35 36.7 C 75 18 159/98 H 96 Room Air Pain Intensity Right Knee: Pain Intensity: 0 Transfer of Care Handoff Completed per policy Notes Mental Status: alert / awake / arousable Patient Amnestic to Procedure: Yes Nausea / Vomiting: adequately controlled Pain: adequately controlled Airway Patency, RR, SpO2: stable & adequate BP & HR: stable & adequate Hydration State: stable & adequate Neuraxial Anesthesia: was administered and sensory block is resolving Anesthetic Complications: no major complications apparent and Pt Satisfied with anesthetic care
[2024-06-04] MEDS ORDERED: METOCLOPRAMIDE HCL INJ 5 MG/ML 2 ML VIAL IV PRN (15:46)
[2024-06-04] MEDS ORDERED: ALUMINUM/MAGNESIUM SUSP 30 ML UDC PO PRN (15:46)
[2024-06-04] MEDS ORDERED: MAGNESIUM HYDROXIDE SUSP 30 ML UDC PO PRN (15:46)
[2024-06-04] MEDS ORDERED: SODIUM CHLORIDE 0.65% NA SOLN 45 ML (OCEAN) NAE PRN (15:46)
[2024-06-04] MEDS ORDERED: bisacodyL 10 MG SUPP PR PRN (15:46)
[2024-06-04] MEDS ORDERED: NALOXONE HCL 0.4 MG/1 ML VIAL/CARP IV PRN (15:46)
[2024-06-04] MEDS ORDERED: HYDROmorphone INJ 0.5 MG/0.5 ML SYR IV PRN (15:46)
[2024-06-04] MEDS ORDERED: TRIAMCINOLONE ACET 0.1% CR 15 GM TUBE EXT PRN (15:51)
[2024-06-04] MEDS: KETOROLAC TROMETHAMINE 15 MG/ML VIAL IV SCH (16:26)
[2024-06-04] MEDS: DOCUSATE SODIUM 100 MG CAP PO SCH (20:23)
[2024-06-04] MEDS: TRANEXAMIC ACID / 0.7% NACL 1,000 MG/100 ML BAG IV SCH (20:23)
[2024-06-04] MEDS: SENNA 8.6 MG TAB PO SCH (20:23)
[2024-06-04] MEDS: CALCIUM 600MG + VIT D 400 IU TAB PO SCH (20:24)
[2024-06-04] MEDS: ASPIRIN 81 MG ECTAB PO SCH (20:24)
[2024-06-04] MEDS: ceFAZolin 1000MG 1,000 MG/7.5 ML SYR IV SCH (20:24)
[2024-06-04] MEDS: hydroCHLOROthiazide 25 MG TAB PO SCH (20:25)
[2024-06-04] MEDS: ASCORBIC ACID 500 MG TAB PO SCH (20:25)
[2024-06-04] MEDS: FLUTICASONE PROPIONATE NA SPR 16 GM BTL NAE SCH (20:26)
[2024-06-04] MEDS ORDERED: NON-FORMULARY MEDICATION (Flaxseed Oil 1,000 mg Capsule) PO SCH (21:00)
[2024-06-04] MEDS ORDERED: SENNA 8.6 MG TAB PO SCH (21:00)
[2024-06-04] MEDS: oxyCODONE HCL IR 5 MG TAB (IMMEDIATE RELEASE) PO PRN (23:18)
[2024-06-05 06:38] LABS: Hematocrit (blood only) 35.6 % (37.0-47.0); Hemoglobin 12.2 g/dl (12.0-16.0); Mean Corpuscular Hemoglobin 30.3 pg (25.0-34.0); Mean Corpuscular Hgb Conc 34.3 g/dL (32.0-36.0); Mean Corpuscular Volume 88.6 fL (80.0-100.0); Mean Platelet Volume 11.2 fL (9.4-12.4); Platelet Count 133 K/uL (130-400); RDW Coefficient of Variation 13.6 % (11.5-14.5); RDW Standard Deviation 44.5 fL (36.4-46.3); Red Blood Count 4.02 M/uL (4.20-5.40); White Blood Count 6.42 K/ul (4.8-10.8)
[2024-06-05 06:55] LABS: BUN Creatinine Ratio 16.7 (10-20); Calcium 9.2 mg/dl (8.6-10.3); Creatinine Clr Calc Pharmacy 44.9 ml/min; Potassium 3.3 mmol/L (3.5-5.1)
[2024-06-05] MEDS: MULTIVITAMIN TAB PO SCH (07:59)
[2024-06-05] MEDS: CETIRIZINE HCL 10 MG TABLET PO SCH (07:59)
[2024-06-05] MEDS: dexAMETHasone 10 MG in SYRINGE 0 ML IV SCH (07:59)
[2024-06-05] MEDS ORDERED: NON-FORMULARY MEDICATION (Biotin 5 mg Tablet) PO SCH (09:00)
[2024-06-05] MEDS: CYANOCOBALAMIN (B-12) 500 MCG TABLET PO SCH (10:06)
[2024-06-05] MEDS: ONDANSETRON INJ 2 MG/ML 2 ML VIAL IV PRN (10:22)
[2024-06-05] MEDS ORDERED: NON-FORMULARY MEDICATION (Multivitamin Tablet) PO SCH (11:30)
[2024-06-05] MEDS: POTASSIUM CHLORIDE CRTAB 20 MEQ TABCR PO STA (12:55)
--- NOTE | 2024-06-05 13:02 | Orthopedic Progress Note ---
Date of Service June 05, 2024 Assessment & Plan (1) Status post right knee replacement: Plan: 74-year-old female postop day 1 from a right knee replacement doing pretty well. Pain has been controlled. Therapy went reasonably well. She is hoping to go home. Plan: 1. DVT prophylaxis including thigh-high teds, SCDs, aspirin twice a day. 2. PT/OT. Weight-bear as tolerated. Right total knee protocol. 3. Pain control. Doing okay with current pain regimen. I recommend she just take 1 pill at a time to avoid the nausea. 4. Disposition. Plan is to discharge to home today with some home health. Admission and Anticipated Discharge Date Admission Date: June 04, 2024 Subjective 74-year-old female postop day 1 from right knee replacement. She is currently doing pretty well. Took 2 pain pills earlier this morning got pretty nauseated. Feeling better. Therapy went well. She is hoping to go home. No chest pain or shortness of breath. Not feeling dizzy or lightheaded. Physical Exam Physical Exam: Physical exam shows a pleasant elderly female. She says sitting up in her bedside looks pretty comfortable. Examination of the right leg reveals dressing be clean dry and intact. She can dorsiflex and plantarflex her foot appropriately. She is neurologically intact. Respiratory: normal respiratory effort, lungs clear to auscultation Cardiovascular: RRR, no murmur, no edema Gastrointestinal (Abdomen): normal bowel sounds, soft, nontender, no hepatosplenomegaly Results & Data Vital Signs (Past 12 Hours) Vital Signs Temp Pulse Resp BP Pulse Ox O2 Del Method 06/05/24 11:27 36.6 C 67 18 112/65 93 Room Air 06/05/24 07:15 36.6 C 77 16 113/64 97 Room Air 06/05/24 03:35 36.6 C 80 18 100/65 94 Room Air Laboratory Results Hemoglobin is 12.2. Hematocrit is 35.6. Electrolytes are stable.
== END 2024-06-05 14:44 | disposition home health service (06) ==
LOC: 3E 10:13 → ASU 10:13